=== PATIENT | female | born 1965 | race Caucasian/White ===

== ENCOUNTER 2021-05-05 11:37 | Outpatient (REF) | payer OTHER, SELFPAY ==
[2021-05-07 15:10] LABS: Lyme Abs Screen Positive
[2021-05-09 18:37] LABS: 18 KD (IgG) Band NON-REACTIVE; 23 KD (IgG) Band NON-REACTIVE; 23 KD (IgM) Band REACTIVE; 28 KD (IgG) Band NON-REACTIVE; 30 KD (IgG) Band NON-REACTIVE; 39 KD (IgM) Band REACTIVE; 41 KD (IgM) Band NON-REACTIVE; 45 KD (IgG) Band NON-REACTIVE; 58 KD (IgG) Band NON-REACTIVE; 66 KD (IgG) Band NON-REACTIVE; 93 KD (IgG) Band NON-REACTIVE; Lyme IgG Blot Interp NEGATIVE (NEGATIVE); Lyme IgM Blot Interp POSITIVE (NEGATIVE)
== END 2021-05-05 11:38 | disposition home or self-care (01) ==
LOC: HO.HMGCLDS 11:37
PROVIDERS: Visit Provider Hospitalist
DX: T14.8XXA Other injury of unspecified body region, initial encounter (principal); W57.XXXA Bitten or stung by nonvenomous insect and other nonvenomous arthropods, initial encounter; Y93.9 Activity, unspecified; Y92.9 Unspecified place or not applicable; Y99.9 Unspecified external cause status
CPT/HCPCS: 36415; 86617; 86618

== ENCOUNTER 2022-03-27 07:12 | Outpatient (REF) | payer OTHER, SELFPAY ==
[2022-03-27 11:16] LABS: MANUAL DIFF FLAG NO
[2022-03-27 11:24] LABS: Basophils Absolute Auto 0.1 X10*3/uL (0.0-0.2); Basophils Percent Auto 0.7 % (0-2); Eosinophils Absolute Auto 0.4 X10*3/uL (0.0-0.4); Eosinophils Percent Auto 5.7 % (0-4); Hematocrit 41.9 % (37.0-47.0); Hemoglobin 13.6 g/dl (12.0-16.0); Imm Gran Abs Auto 0.01 X10*3/uL (0.00-0.03); Imm Gran Pct Auto 0.1 % (0.0-0.4); Mean Corpuscular HGB Conc 32.5 g/dl (31.0-35.0); Mean Corpuscular Hemoglobin 30.6 pg (27.0-33.0); Mean Corpuscular Volume 94.2 fL (80.0-98.0); Monocytes Absolute Auto 0.4 X10*3/uL (0.1-1.2); Neutrophils Absolute Auto 3.3 x10*3/uL (2.0-8.3); Neutrophils Percent Auto 46.5 % (45-73); Platelet Count 212 X10*3/uL (160-400); Red Blood Count 4.45 X10*6/uL (4.20-5.50); White Blood Count 7.2 X10*3/uL (4.8-10.8)
[2022-03-27 11:57] LABS: Alanine Aminotransferase 13 U/L (0-31); Anion Gap 12 (12-20); Aspartate Amino Transferase 16 U/L (5-31); Blood Urea Nitrogen 11 mg/dL (9-16); Calcium 9.3 mg/dL (8.4-10.2); Carbon Dioxide 28 mmol/L (22-29); Chloride 106 mmol/L (96-108); Cholesterol 249 mg/dL; Estimated Glomerular Filt Rate > 60; Glucose Fasting 91 mg/dL (60-99); HDL Cholesterol 70 mg/dL; LDL Cholesterol Calculated 163 mg/dl; Potassium 4.4 mmol/L (3.3-5.1); Sodium 142 mmol/L (135-145); Triglycerides 82 mg/dL
[2022-03-27 12:05] LABS: Vitamin D 25-OH Total 20.5 ng/mL (>30)
[2022-03-27 12:38] LABS: Folate 14.5 ng/mL (> or = 4.0); Vitamin B12 204 pg/mL (200-900)
== END 2022-03-27 07:13 | disposition home or self-care (01) ==
LOC: HO.HMGCLDS 07:12
PROVIDERS: PCP Internal Medicine; Visit Provider Internal Medicine
DX: Z00.01 Encounter for general adult medical examination with abnormal findings (principal); E53.8 Deficiency of other specified B group vitamins; Z78.0 Asymptomatic menopausal state
CPT/HCPCS: 36415; 80048; 80061; 82306; 82607; 82746; 84443; 84450; 84460; 85025

== ENCOUNTER 2022-12-06 09:28 | Outpatient (REF) | payer OTHER, SELFPAY ==
[2022-12-06 12:08] LABS: Hematocrit 42.3 % (37.0-47.0); Mean Corpuscular HGB Conc 33.1 g/dl (31.0-35.0); Mean Corpuscular Hemoglobin 30.3 pg (27.0-33.0); Mean Corpuscular Volume 91.6 fL (80.0-98.0); Mean Platelet Volume 12.1 fL (9.4-12.3); Platelet Count 220 X10*3/uL (160-400); Red Blood Count 4.62 X10*6/uL (4.20-5.50); Red Cell Distribution Width 13.5 % (11.0-16.0); White Blood Count 10.9 X10*3/uL (4.8-10.8)
[2022-12-06 12:43] LABS: Erythrocyte Sedimentation Rate 26 MM/HR (0-20)
[2022-12-06 13:05] LABS: Alanine Aminotransferase 13 U/L (0-31); Albumin Level 4.5 g/dL (3.5-5.0); Alkaline Phosphatase 73 U/L (39-117); Anion Gap 14 (12-20); Aspartate Amino Transferase 14 U/L (5-31); Bilirubin Direct 0.3 mg/dL (0.0-0.5); Bilirubin Total 0.9 mg/dL (0.0-1.0); Blood Urea Nitrogen 7 mg/dL (9-16); Calcium 9.9 mg/dL (8.4-10.2); Carbon Dioxide 27 mmol/L (22-29); Chloride 103 mmol/L (96-108); Estimated Glomerular Filt Rate > 60; Glucose Random 98 mg/dL (60-115); Potassium 4.4 mmol/L (3.3-5.1); Sodium 140 mmol/L (135-145); Thyroid Stimulating Hormone 1.08 uIU/mL (0.32-4.0); Total Protein 6.9 g/dL (6.5-8.0)
== END 2022-12-06 09:29 | disposition home or self-care (01) ==
LOC: HO.HMGCLDS 09:28
PROVIDERS: PCP Internal Medicine; Visit Provider Internal Medicine
DX: K57.92 Diverticulitis of intestine, part unspecified, without perforation or abscess without bleeding (principal); E03.9 Hypothyroidism, unspecified
CPT/HCPCS: 36415; 80048; 80076; 84443; 85027; 85652

== ENCOUNTER 2024-10-28 08:00 | Outpatient (REF) | payer OTHER, SELFPAY ==
--- NOTE | ~2024-10-28 | XR_ITS ---
EXAMINATION: XR CHEST CLINICAL INFORMATION: J06.9 - Acute upper respiratory infection, unspecified COMPARISON: None available. TECHNIQUE: 2 views of the chest were obtained. FINDINGS: No consolidation, pleural effusion or pneumothorax. Cardiomediastinal silhouette size is normal. Mild multilevel thoracic spondylosis. XR/XR chest 2V IMPRESSION: No acute airspace disease Electronically signed by: Fabián Xavier MD 10/28/2024 09:05 AM [facility]
== END 2024-10-28 08:01 | disposition home or self-care (01) ==
LOC: HO.HMGCX 08:00
PROVIDERS: PCP Internal Medicine; Visit Provider Physician Assistant
DX: J06.9 Acute upper respiratory infection, unspecified (principal)
CPT/HCPCS: 71046; 99212

== ENCOUNTER 2024-10-28 08:00 | Outpatient (AMB) | payer OTHER, SELFPAY ==
--- NOTE | 2024-10-28 08:19 | MHC.OFFWIV ---
Intake Vital Signs 10/28/24 08:20 Height 5 ft 7 in Weight 185 lb BMI 29.0 BP 112/70 Blood Pressure Location Lt brachial Position Sitting Pulse 79 Pulse Source Pulse Oximeter Temp 97.9 F Temp Source Oral Pulse Oximetry (%) 95 Intake Visit Reasons: EP headache, cold, cough Patient Tobacco Use Status: Former Tobacco user Allergies cat dander Allergy (Verified 10/28/24 08:20) Itchy Eyes Seasonal Allergies Allergy (Verified 10/28/24 08:20) Runny Nose Penicillins Adverse Reaction (Verified 10/28/24 08:20) hives Do you need a note to return to daycare/school/sports/work: Yes HPI HPI Comments History of Present Illness Details This is a 58-year-old female with no stated past medical history presenting for evaluation of headache, nasal congestion and cough that she has had since Sunday. Patient states she has had an expiratory wheeze despite using Mucinex [id number]. Patient denies having any fevers, chills, chest pain, sore throat or ear pain however she does describe intermittent shortness for breath with her productive cough. COUNTS INCLUDE 234 BEDS AT THE [facility] Medical History Family history of clotting disorder Generalized anxiety disorder Hx of diverticulitis of colon Vitamin B12 deficiency Surgical History Hx of colonoscopy Family History Maternal Aunt Alcoholism Mental health disorder Substance use disorder Father Alcoholism Substance use disorder Maternal Uncle Alcoholism Lymphoma Mental health disorder Substance use disorder Brother DVT (deep venous thrombosis) Alcoholism Mental health disorder Brother Alcoholism Mental health disorder Sister DVT (deep venous thrombosis) Mental health disorder Prothrombin gene mutation Anxiety and depression CVA (cerebral vascular accident) Paternal Grandmother Alzheimer disease Paternal Aunt Sick sinus syndrome CVA (cerebral vascular accident) Paternal Uncle Sick sinus syndrome Social History Household Members: Spouse Housing: House Are you a primary landcare facilitator to a significant other at home: No Do you presently have visiting nurse or other home services: No Patient Tobacco Use Status: Former Tobacco user Tobacco use type: Cigarette e-Cigarette/Vaping Use: Never Used Substance Use Type: Marijuana service: No Current occupational status: employed Cognitive needs: No Hearing needs: No Vision needs: Yes Female Reproductive History Menstrual Age of Menarche: 14 Review of Systems Const All systems reviewed & are unremarkable except as noted in HPI and below Denies body aches, Denies chills, Reports fatigue, Denies fever(s), Denies malaise and Denies weakness Eyes Reports no additional complaints ENT Reports no additional complaints Card Reports no additional complaints and Reports dyspnea Resp Reports as per HPI, Reports cough, Denies hemoptysis, Reports dyspnea and Reports wheezing GI Reports as per HPI Reports no additional complaints Musc Reports no additional complaints Skin/Breast Reports system reviewed and no additional complaints, except as documented Neuro Reports no additional complaints and Denies weakness Psych Reports no additional complaints Endo Reports no additional complaints and Reports fatigue William/Lymph Reports no additional complaints Aller/Immun Reports no additional complaints and Reports wheezing Physical Exam Vital Signs: Last Vital Signs Temp 97.9 F 10/28/24 08:20 Pulse 79 10/28/24 08:20 BP 112/70 10/28/24 08:20 Pulse Ox 95 10/28/24 08:20 BMI result Body Mass Index 29.0 Const General: cooperative, healthy appearing, comfortable, no acute distress, well developed, alert, awake and Physically active; No acute distress Nutritional Appearance: average body habitus Orientation/consciousness: patient oriented x3 Limitations: no limitations HEENT Head: Yes normal to inspection and Yes normocephalic Ears: hearing grossly normal bilaterally, external ears normal, TM's normal bilaterally and EAC's normal General nose exam: Normal external nose present Face and sinus: Yes normal facial exam and Yes sinuses nontender Mouth: Normal oral and palatal mucosa present and moist mucous membranes Throat: Yes posterior oropharynx normal and No postnasal drainage Eyes General: appearance normal, both eyes and all related structures Conjunctivae: conjunctivae normal EOM: EOMs intact bilaterally Resp Effort & Inspection: normal respiratory effort, able to speak in complete sentences, no audible wheezes and Actively coughing Auscultation: wheezes expiratory wheezes and right lower Cardio Rate: regular rate Rhythm: regular rhythm Skin General skin exam: no rashes or lesions noted Neuro General: patient oriented x3 Psych Appearance: grossly normal Mental Status: mental status grossly normal Insight: Good insight present (Psych) Judgement: Good judgement present (Psych) Results Reviewed Results Reviewed: CXR clear Assessment & Plan Assessment & Plan (1) Acute upper respiratory infection: Comment: No acute findings noted on chest x-ray. Code(s): J06.9 - Acute upper respiratory infection, unspecified Plan: Mucinex, tea with honey, increase clear fluids daily. Orders: Orders XR chest 2V Today J06.9 - Acute upper respiratory infection, unspecified Coding Level of Care Code Est Pt Level 3 (12951) Diagnoses Acute upper respiratory infection J06.9 Time Spent (min) 20
[2024-10-28 08:20] VITALS: BP 112/70; PULSE 79; TEMP 36.6; O2SAT 95; BMI 29.0
== END 2024-10-28 09:21 | disposition home or self-care (01) ==
PROVIDERS: PCP Internal Medicine; Visit Provider Physician Assistant
DX: J06.9 Acute upper respiratory infection, unspecified (principal)

== ENCOUNTER → 2024-10-28 08:51 | Outpatient (BNV) | payer OTHER, SELFPAY | PROVIDERS: PCP Internal Medicine; Visit Provider Radiology Diagnostic Radiology | DX: J06.9 Acute upper respiratory infection, unspecified (principal) | CPT/HCPCS: 71046 ==

== ENCOUNTER 2024-11-12 13:17 | Outpatient (AMB) | payer OTHER, SELFPAY ==
[2024-11-12 13:40] VITALS: BP 110/70; PULSE 77; RESP 15; O2SAT 97; BMI 29.1
--- NOTE | 2024-11-12 13:40 | MHC.PC.OV ---
Vital Signs 11/12/24 13:40 Height 5 ft 7 in Weight 185 lb 9 oz BMI 29.1 BP 110/70 Blood Pressure Location Rt brachial Position Sitting Respiration 15 Pulse 77 Pulse Source Pulse Oximeter Pulse Oximetry (%) 97 Oxygen Delivery Method Room Air Intake Visit Reasons: Annual PE/Overdue Intake Note: Pt is here today for her Annual Physical. Allergies cat dander Allergy (Verified 11/12/24 13:49) Itchy Eyes Seasonal Allergies Allergy (Verified 11/12/24 13:49) Runny Nose Penicillins Adverse Reaction (Verified 11/12/24 13:49) hives Medication List - Last Reconciled 11/12/24 by Annalee Clay MD lorazepam 1 mg PO BID Tobacco use date assessed: 11/12/24 Dental Screening Dental Screen Date: 11/12/24 Did you have a dental visit in the last 12 months?: Yes Did you have a dental problem in the last 6 months where you did not have access to dental care?: No Was dental information given to patient?: Patient has dentist HPI Annual PE/Overdue HPI Details 58-year-old lady here today for physical exam. She is currently being followed by a nurse practitioner psychiatrist, Rose Mary Rodas NP who has only been prescribing her lorazepam to take as needed for acute anxiety attacks which has been helping. She stopped taking sertraline as it was not helping and was making her gain weight. She previously was being seen at [facility] by Dr. Марина Velasquez for her routine Pap and pelvic exam, last done in 2019 with benign findings. Patient states that she will schedule another appointment with her . She goes to [facility] for her screening mammogram, up-to-date, copy of last mammogram results requested.. She states that she is also up-to-date with her screening colonoscopy done by Dr. Kee in 2019, with results negative, due for a repeat colonoscopy in 10 years from initial procedure. She has been feeling well, no complaints at present time. She admits to not adhering to healthy eating habits but tries to exercise regularly.. REPLACED BY [facility] Medical History Hx of diverticulitis of colon Generalized anxiety disorder Family history of clotting disorder Vitamin B12 deficiency Surgical History Hx of colonoscopy Family History Maternal Aunt Alcoholism Mental health disorder Substance use disorder Father Alcoholism Substance use disorder Maternal Uncle Alcoholism Lymphoma Mental health disorder Substance use disorder Brother DVT (deep venous thrombosis) Alcoholism Mental health disorder Brother Alcoholism Mental health disorder Sister DVT (deep venous thrombosis) Mental health disorder Prothrombin gene mutation Anxiety and depression CVA (cerebral vascular accident) Paternal Grandmother Alzheimer disease Paternal Aunt Sick sinus syndrome CVA (cerebral vascular accident) Paternal Uncle Sick sinus syndrome Social History Household Members: Spouse Housing: House Are you a primary behavioral health care coordinator to a significant other at home: No Do you presently have visiting nurse or other home services: No Patient Tobacco Use Status: Former Tobacco user Tobacco use type: Cigarette e-Cigarette/Vaping Use: Never Used Substance Use Type: Marijuana service: No Current occupational status: employed Cognitive needs: No Hearing needs: No Vision needs: Yes Female Reproductive History Menstrual Age of Menarche: 14 Other: Was seeing Dr. Марина Velasquez at [facility] and gets her screening mammogram at [facility], copies of results requested Questionnaire PHQ-9 Over the last 2 weeks, how often have you been bothered by any of the following problems? 1. Little interest or pleasure in doing things: not at all 2. Feeling down, depressed, or hopeless: not at all 3. Trouble falling or staying asleep, or sleeping too much: not at all 4. Feeling tired or having little energy: not at all 5. Poor appetite or overeating: not at all 6. Feeling bad about yourself - or that you are a failure or have let yourself or your family down: not at all 7. Trouble concentrating on things, such as reading the newspaper or watching television: not at all 8. Moving or speaking so slowly that other people could have noticed. Or the opposite - being so fidgety or restless that you have been moving around a lot more than usual: not at all 9. Thoughts that you would be better off or of hurting yourself in some way: not at all Total score: 0 Depression Screening Interpretation: Negative Depression Screening Done: Yes 57197 - PHQ-9 Billing: Yes Source: Developed by Drs. Naga Hart, Radha Hickey, Lucas Vallejo and colleagues, with an educational marko from [employer]. Thrive Questionnaire Date Thrive assessed: 11/12/24 I am a: Patient What is your living situation today?: I have a steady place to live Within the past 12 months, did the food you bought not last and you didn't have the money to get more?: Never true Within the past 12 months, did you worry whether your food would run out before you got money to buy more?: Never true Do you have trouble paying for medicines?: No Do you have trouble getting transportation to medical appointments?: No Do you have trouble paying your heating and electricity bill?: No Do you have trouble taking care of your child, family member or friend?: No Do you have trouble with day-to-day activities such as bathing, preparing meals, shopping, managing finances, etc.?: No Are you currently unemployed and looking for a job?: No Are you interested in more education?: No Please select the resources that you would like help with: None Currently or been in a relationship where the following occur: No concerns reported THRIVE Score: 0 AUDIT C Alcohol Use Questionnaire (AUDIT-C) 1. How often do you have a drink containing alcohol?: Monthly or less 2. How many drinks containing alcohol do you have on a typical day when you are drinking?: 1 or 2 3. How often do you have six or more drinks on one occasion?: Never Total Score: 1 Score Reviewed/Action Taken: Yes RUPINDER-7 AMB Questionnaire RUPINDER-7 Date RUPINDER - 7 assessed: 11/12/24 Feeling nervous, anxious, or on edge: 0 = Not at all Not being able to stop or control worryin = Not at all Worrying too much about different things: 1 = Several days Trouble relaxin = Several days Being so restless that it is hard to sit still: 0 = Not at all Becoming easily annoyed or irritable: 0 = Not at all Feeling afraid as if something awful might happen: 0 = Not at all Total RUPINDER-7 score (0-4 normal; 5-9 mild; 10-14 moderate; 15-21 severe): 2 Source: Developed by Drs. Naga Hart, Radha Hickey, Lucas Vallejo and colleagues, with an educational marko from [employer] RUPINDER-7 Assessment Billing RUPINDER-7 Assessment Tool: RUPINDER-7 Assessment 10491 (sees psychiatric nursing aide Rose Mary Rodas in [place], takes prn lorazepam) Review of Systems Const Denies body aches, Denies chills, Denies fever(s), Denies malaise and Denies weakness Eyes Details: Sees [facility], suspect glaucoma followed yearly Reports no additional complaints ENT Details: Dental prophylaxis 3 times a year in [place], [facility] Reports no additional complaints Card Reports no additional complaints and Reports dyspnea Resp Reports as per HPI, Reports cough, Denies hemoptysis and Reports dyspnea GI Reports as per HPI Reports no additional complaints Musc Reports no additional complaints Skin/Breast Denies breast swelling, Denies breast pain, Denies breast mass and Denies rash Neuro Reports no additional complaints and Denies weakness Psych Reports no additional complaints Endo Reports no additional complaints William/Lymph Reports no additional complaints Aller/Immun Reports no additional complaints Physical exam (Primary Care) Vital Signs: Last Vital Signs Pulse 77 11/12/24 13:40 Resp 15 11/12/24 13:40 BP 110/70 11/12/24 13:40 Pulse Ox 97 11/12/24 13:40 Oxygen Delivery Method Room Air 11/12/24 13:40 BMI result Body Mass Index 29.1 9 Tobacco/Smoking Status: Tobacco use Status Tobacco use date assessed 11/12/24 11/12/24 13:44 Patient Tobacco Use Status Former Tobacco user 11/12/24 13:40 Tobacco use type Cigarette 11/12/24 13:40 e-Cigarette/Vaping Use Never Used 11/12/24 13:40 PHQ-9: PHQ-9 Score PHQ-9: Total score 0 11/12/24 14:18 Depression Screening Interpretation: Negative Thrive Assessment: Date of Thrive Assessment Date Thrive assessed 11/12/24 11/12/24 13:44 Currently or been in a relationship where the following occur: No concerns reported Advance Care Planning discussion: Completed/Scanned Date of discussion: 11/12/24 Who was present: Patient Forms completed: Health Care Proxy and MOLST Time spent: 16-45 minutes Actual minutes spent: 16 Const Other: Alert oriented x3, no acute cardiorespiratory distress, ambulatory with normal gait Orientation/consciousness: patient oriented x3 HENMT Ears: hearing grossly normal bilaterally, TM's normal bilaterally and EAC's normal General nose exam: Normal external nose present and No nasal discharge present Face and sinus: Yes face symmetric Mouth: Normal oral and palatal mucosa present, tongue normal, oropharynx normal and moist mucous membranes Eyes General: appearance normal, both eyes and all related structures Neck Neck: Yes full ROM, Yes no lymphadenopathy and Yes supple Thyroid: Thyroid normal Chest Chest palpation & inspection: normal inspection of the chest Breast/axilla palpation: normal palpation of the breasts Resp Effort & Inspection: normal respiratory effort and able to speak in complete sentences Auscultation: clear to auscultation bilaterally Cardio Other: S1-S2 present regular rate and rhythm GI Other: Normal bowel sounds, soft, nontender, no mass palpated General: Yes no CVA tenderness Back/Spine/Pelvis Back: no CVA tenderness and No back tenderness Skin General skin exam: no rashes or lesions noted Neuro General: patient oriented x3, gait normal, tone normal, moves all extremities, Normal light touch and pain sensation and no focal motor deficits Extrem General: Yes full ROM, Yes no joint enlargement, Yes no pedal edema and Yes normal gait Psych Appearance: grossly normal and well kempt Mental Status: mental status grossly normal Speech and movement: Normal speech and movement present Affect: normal affect Coding Level of Care Code Est Pt Prev Care 40-64y(03206) Diagnoses Annual visit for general adult medical examination with abnormal findings Z00. Screening for malignant neoplasm of cervix Z12.4 Generalized anxiety disorder F41.1 Advanced directives, counseling/discussion Z71.89 Additional Codes RUPINDER-7 Assessment Billing - RUPINDER-7 Assessment Tool: RUPINDER-7 Assessment 67183 ([id number]) PHQ-9 - 34912 - PHQ-9 Billing: Yes ([id number]) Vital Signs *Quality* - Advance Care Planning discussion: Completed/Scanned ([id number]) Vital Signs *Quality* - Time spent: 16-45 minutes ([id number]) Assessment & Plan Assessment & Plan (1) Annual visit for general adult medical examination with abnormal findings: Code(s): Z00.01 - Encounter for general adult medical examination with abnormal findings Plan: Will check appropriate labs. Continued regular dental visit and regular eye exams, at least every 2 years. Take adequate calcium in diet and vitamin-D 3 at 2000 IU per cap once a day, in addition to weight-bearing exercises to help maintain good muscle tone and weight control. Instructed to do self-breast exam, and continue to get yearly mammogram, copy of last mammogram results requested from [facility]. Patient states that she is up-to-date with her screening colonoscopy done by Dr. Kee, copy of results requested. Last cervical cancer screening was done in 2019 with negative findings,. Patient referred back again to see Dr. Марина Velasquez for routine market asset protection manager exam (2) Screening for malignant neoplasm of cervix: Code(s): Z12.4 - Encounter for screening for malignant neoplasm of cervix Plan: Referral ordered to see Dr. Марина Velasquez, per patient request for her routine Pap and pelvic exam (3) Generalized anxiety disorder: Code(s): F41.1 - Generalized anxiety disorder Category: Medical Plan: She sees psychiatrist nurse practitioner, and takes only lorazepam as needed for acute anxiety attacks (4) Advanced directives, counseling/discussion: Code(s): Z71.89 - Other specified counseling Plan: Initiated the conversation about Advanced Directives. Advanced Directives help patients prepare for current and future decisions about their medical treatment and place of care. Discussed with patient that it is a process where a patients current condition and prognosis are reviewed, their wishes for information regarding their illness are elicited, and likely medical dilemmas are presented and options discussed. Healthcare proxy and MOLST form completed today. These forms can be amended as needed, reviewed yearly and make changes as needed Orders: Orders Basic Metabolic Panel Fasting Today F41.1 - Generalized anxiety disorder Lipid Panel Today F41.1 - Generalized anxiety disorder Complete Blood Count Auto Diff Today F41.1 - Generalized anxiety disorder Aspartate Amino Transferase Today F41.1 - Generalized anxiety disorder Alanine Aminotransferase Today F41.1 - Generalized anxiety disorder Vitamin D 25-OH Total Today F41.1 - Generalized anxiety disorder Referrals SUPPLY CHAIN BUSINESS ANALYST Referral Z12.4 - Encounter for screening for malignant neoplasm of cervix
== END 2024-11-12 14:27 | disposition home or self-care (01) ==
PROVIDERS: PCP Internal Medicine; Visit Provider Internal Medicine
DX: Z00.01 Encounter for general adult medical examination with abnormal findings (principal); Z12.4 Encounter for screening for malignant neoplasm of cervix; F41.1 Generalized anxiety disorder; Z71.89 Other specified counseling

== ENCOUNTER → 2024-11-12 13:17 | Outpatient (BNVA) | payer OTHER, SELFPAY | PROVIDERS: PCP Internal Medicine; Visit Provider Internal Medicine | DX: Z00.01 Encounter for general adult medical examination with abnormal findings (principal); F41.1 Generalized anxiety disorder; Z71.89 Other specified counseling | CPT/HCPCS: 96127; 99497 ==

== ENCOUNTER 2024-11-24 07:36 | Outpatient (REF) | payer OTHER, SELFPAY ==
[2024-11-24 10:21] LABS: MANUAL DIFF FLAG NO
[2024-11-24 10:24] LABS: Basophils Absolute Auto 0.1 X10*3/uL (0.0-0.2); Basophils Percent Auto 0.9 % (0-2); Eosinophils Absolute Auto 0.3 X10*3/uL (0.0-0.4); Eosinophils Percent Auto 4.8 % (0-4); Hematocrit 41.8 % (37.0-47.0); Hemoglobin 13.6 g/dl (12.0-16.0); Imm Gran Abs Auto 0.02 X10*3/uL (0.00-0.03); Imm Gran Pct Auto 0.3 % (0.0-0.4); Lymphocytes Absolute Auto 2.5 X10*3/uL (1.2-4.9); Lymphocytes Percent Auto 35.9 % (20-40); Mean Corpuscular HGB Conc 32.5 g/dl (31.0-35.0); Mean Corpuscular Hemoglobin 30.2 pg (27.0-33.0); Mean Corpuscular Volume 92.9 fL (80.0-98.0); Mean Platelet Volume 12.1 fL (9.4-12.3); Monocytes Absolute Auto 0.4 X10*3/uL (0.1-1.2); Neutrophils Absolute Auto 3.7 x10*3/uL (2.0-8.3); Neutrophils Percent Auto 52.1 % (45-73); Platelet Count 242 X10*3/uL (160-400); Red Cell Distribution Width 14.1 % (11.0-16.0)
[2024-11-24 10:55] LABS: Alanine Aminotransferase 18 U/L (0-31); Anion Gap 10 (12-20); Aspartate Amino Transferase 21 U/L (5-31); Blood Urea Nitrogen 17 mg/dL (9-16); Calcium 9.2 mg/dL (8.4-10.2); Carbon Dioxide 27 mmol/L (22-29); Chloride 107 mmol/L (96-108); Cholesterol 221 mg/dL (<200); Estimated Glomerular Filt Rate > 60; Glucose Fasting 94 mg/dL (60-99); HDL Cholesterol 69 mg/dL (>40); LDL Cholesterol Calculated 138 mg/dL (<100); Potassium 4.1 mmol/L (3.3-5.1); Sodium 140 mmol/L (135-145); Triglycerides 71 mg/dL (<150)
[2024-11-24 11:00] LABS: Vitamin D 25-OH Total 37.4 ng/mL (>30)
== END 2024-11-24 07:37 | disposition home or self-care (01) ==
LOC: HO.HMGCLDS 07:36
PROVIDERS: PCP Internal Medicine; Visit Provider Internal Medicine
DX: F41.1 Generalized anxiety disorder (principal); Z13.6 Encounter for screening for cardiovascular disorders
CPT/HCPCS: 36415; 80048; 80061; 82306; 84450; 84460; 85025

== ENCOUNTER 2025-03-11 08:01 | Outpatient (AMB) | payer OTHER, SELFPAY ==
[2025-03-11 08:18] VITALS: BP 100/64; PULSE 92; TEMP 36.9; O2SAT 97; BMI 24.1
--- NOTE | 2025-03-11 08:18 | AM.OFFWIN_ITS ---
Intake Vital Signs 03/11/25 08:18 Height 5 ft 7 in Weight 154 lb BMI 24.1 BP 100/64 Blood Pressure Location Rt brachial Position Sitting Pulse 92 Pulse Source Pulse Oximeter Temp 98.4 F Temp Source Oral Pulse Oximetry (%) 97 Oxygen Delivery Method Room Air Intake Visit Reasons: EP-lt abd pain Patient Tobacco Use Status: Former Tobacco user Telecom Assistant Required: No Allergies cat dander Allergy (Verified 03/11/25 08:20) Itchy Eyes Seasonal Allergies Allergy (Verified 03/11/25 08:20) Runny Nose Penicillins Adverse Reaction (Verified 03/11/25 08:20) hives Do you need a note to return to daycare/school/sports/work: No HPI HPI Comments History of Present Illness Details History of Present Illness - The patient is a 59-year-old female pr esenting with a flare-up of diverticulitis. - She has a history of diverticulosis wi th previous episodes of flare-ups. - Symptoms include diarrhea, inability t o eat, and atypical abdominal pain located higher than usual, left sided abdomen. - No fever or bloody or black stools rep orted. No shortness of breath, no chest pain. - The patient has previously been treate d with antibiotics and is currently managing symptoms with a liquid diet. Physical Exam General: Cooperative, healthy appearing, comfortable, no acute distress and well developed Orientation: Patient oriented x3 Limitations: No limitations Head: Normal to inspection Ears: Hearing grossly normal bilaterally Nose: Normal External nose present Face and sinus: Normal facial exam Eyes: Appearance normal, both eyes and all related structures Neck: Normal visual inspection and Yes full ROM Respiratory: Normal respiratory effort and able to speak in complete sentences. GI: soft, negative murphys, negative mcburneys, ttp LUQ and LLQ Skin: No rashes or lesions noted Neuro: Patient oriented x3 Extremities: Normal to inspection [facility] Medical History Hx of diverticulitis of colon Generalized anxiety disorder Family history of clotting disorder Vitamin B12 deficiency Surgical History Hx of colonoscopy Family History Maternal Aunt Alcoholism Mental health disorder Substance use disorder Father Alcoholism Substance use disorder Maternal Uncle Alcoholism Lymphoma Mental health disorder Substance use disorder Brother DVT (deep venous thrombosis) Alcoholism Mental health disorder Brother Alcoholism Mental health disorder Sister DVT (deep venous thrombosis) Mental health disorder Prothrombin gene mutation Anxiety and depression CVA (cerebral vascular accident) Paternal Grandmother Alzheimer disease Paternal Aunt Sick sinus syndrome CVA (cerebral vascular accident) Paternal Uncle Sick sinus syndrome Social History Household Members: Spouse Housing: House Are you a primary child care nurse to a significant other at home: No Do you presently have visiting nurse or other home services: No Patient Tobacco Use Status: Former Tobacco user Tobacco use type: Cigarette e-Cigarette/Vaping Use: Never Used Substance Use Type: Marijuana service: No Current occupational status: employed Cognitive needs: No Hearing needs: No Vision needs: Yes Female Reproductive History Menstrual Age of Menarche: 14 Review of Systems Const All systems reviewed & are unremarkable except as noted in HPI and below Physical Exam Vital Signs: Last Vital Signs Temp 98.4 F 03/11/25 08:18 Pulse 92 03/11/25 08:18 BP 100/64 03/11/25 08:18 Pulse Ox 97 03/11/25 08:18 Oxygen Delivery Method Room Air 03/11/25 08:18 BMI result Body Mass Index 24.1 Assessment & Plan Assessment & Plan (1) Diverticulitis: Code(s): K57.92 - Diverticulitis of intestine, part unspecified, without perforation or abscess without bleeding Plan: Plan - Prescribed Flagyl and Levaquin x7d each for diverticulitis flare-up management. - Recommend a liquid diet initially, transitioning to the BRAT diet as symptoms improve. - Advise monitoring for high fever or bloody stools, and to seek emergency care if symptoms worsen or do not improve within 48-72 hours. Patient was informed and verbally consented to the use of an ambient scribe for clinic note documentation during this visit. Medications: New metronidazole 500 mg PO Q12H 14 tabs 0RF levofloxacin 750 mg PO Q24H 7 tabs 0RF Coding Level of Care Code Est Pt Level 3 (44708) Diagnoses Diverticulitis K57.92
== END 2025-03-11 09:34 | disposition home or self-care (01) ==
PROVIDERS: PCP Internal Medicine; Visit Provider Physician Assistant
DX: K57.92 Diverticulitis of intestine, part unspecified, without perforation or abscess without bleeding (principal)

== ENCOUNTER → 2025-03-11 08:01 | Outpatient (BNVA) | payer OTHER, SELFPAY | PROVIDERS: PCP Internal Medicine; Visit Provider Physician Assistant | DX: K57.92 Diverticulitis of intestine, part unspecified, without perforation or abscess without bleeding (principal) | CPT/HCPCS: 99212 ==